=== PATIENT | male | born 1995 | race Caucasian/White ===

== ENCOUNTER 2021-01-29 00:38 | Emergency (ER) | payer OTHER ==
[2021-01-29 01:25] VITALS: BP 128/63; PULSE 84; TEMP 98.8; BMI 21.7
[2021-01-29] MEDS ORDERED: ACETAMINOPHEN 500 MG TABLET (FP) PO ONE (01:57)
[2021-01-29] MEDS ORDERED: ACETAMINOPHEN 325 MG TABLET (FP) ONE (02:07)
== END 2021-01-29 02:16 | disposition home or self-care (01) ==
LOC: JER 00:38
DX: M25.511 Pain in right shoulder (principal); F32.9 Major depressive disorder, single episode, unspecified
CPT/HCPCS: 99283-25

== ENCOUNTER 2022-03-30 00:52 | Emergency (ER) | payer OTHER ==
[2022-03-30 00:58] VITALS: BMI 26.4
[2022-03-30 07:17] VITALS: BP 111/70; PULSE 75; TEMP 97.6
== END 2022-03-30 11:16 | disposition home or self-care (01) ==
LOC: JER 00:52 → MERGE 00:52 → JER 11:16
DX: R45.851 Suicidal ideations (principal); R45.850 Homicidal ideations; R44.3 Hallucinations, unspecified
CPT/HCPCS: 82962; 99283-25

== ENCOUNTER 2022-03-31 21:07 | Emergency (ER) | payer OTHER ==
[2022-03-31 21:40] VITALS: BMI 24.4
[2022-03-31] MEDS ORDERED: LACTATED RINGERS SOLUTION 1000 ML INFUS.BAG IV ONE (22:45)
[2022-03-31 22:53] LABS: BASO % 0.5 % (0-2.0); EOS % 0.5 % (0-4.5); HEMATOCRIT 44.9 % (35.4-49); MCHC 33.4 g/dl (32.0-35.9); MEAN CELL VOLUME 86.8 fl (80-96); MEAN PLT VOLUME 7.8 fl (7.5-11.1); MONO % 10.8 % (3.8-10.2); NEUT % 68.2 % (42.8-82.8); PLATELET COUNT 219 10^3/uL (134-434); RBC 5.17 M/mm3 (4.00-5.60); RDW 13.9 % (11.9-15.9)
[2022-03-31 22:55] LABS: PH,URINE 6.5 (5.0-8.0); URINE APPEARANCE CLEAR; URINE BILIRUBIN NEGATIVE (NEGATIVE); URINE COLOR YELLOW; URINE GLUCOSE (UA) NEGATIVE (NEGATIVE); URINE KETONE NEGATIVE (NEGATIVE); URINE LEUK ESTERASE NEGATIVE (NEGATIVE); URINE NITRITE NEGATIVE (NEGATIVE); URINE PROTEIN NEGATIVE (NEGATIVE); URINE UROBILINOGEN 0.2 mg/dL (0.2-1.0)
[2022-03-31 23:02] LABS: CHLORIDE 102 mmol/L (98-107); SODIUM 134 mmol/L (136-145)
[2022-03-31 23:03] LABS: METHADONE, UR NEGATIVE (NEGATIVE); PHENCYCLIDINE,URINE NEGATIVE (NEGATIVE); URINE AMPHETAMINES NEGATIVE (NEGATIVE)
[2022-03-31 23:04] LABS: ALBUMIN 3.3 g/dl (3.4-5.0); ANION GAP 6 MMOL/L (8-16); BLOOD UREA NITROGEN 18.7 mg/dL (7-18); CALCIUM 8.8 mg/dL (8.5-10.1); CO2 27 mmol/L (21-32)
[2022-03-31 23:05] LABS: GLUCOSE,RANDOM 99 mg/dL (74-106)
[2022-03-31 23:07] LABS: SGPT/ALT 42 U/L (13-61)
[2022-03-31 23:08] LABS: COCAINE, UR POSITIVE (NEGATIVE); OPIATES, URI NEGATIVE (NEGATIVE); URINE BARBITURATES NEGATIVE (NEGATIVE); URINE BENZODIAZEPINES NEGATIVE (NEGATIVE)
[2022-03-31 23:08] LABS: SGOT/AST 18 U/L (15-37)
[2022-03-31 23:09] LABS: BILIRUBIN,TOTAL 0.2 mg/dL (0.2-1); TOT PROT 6.9 g/dl (6.4-8.2)
[2022-03-31 23:10] LABS: ALK PHOS 83 U/L (45-117)
[2022-04-01 14:45] VITALS: BP 117/76; PULSE 89; TEMP 98.1
== END 2022-04-01 14:51 | disposition home or self-care (01) ==
LOC: JER 21:07
DX: R45.851 Suicidal ideations (principal)
CPT/HCPCS: 36415; 80053; 80307; 81003; 82550; 82553; 84439; 84443; 85025; 87086; 93005; 93010; 99284-25

== ENCOUNTER 2022-04-09 21:13 | Emergency (ER) | payer OTHER ==
[2022-04-09 21:26] VITALS: BP 138/79; PULSE 108; TEMP 99.2; BMI 25.3
[2022-04-09] MEDS ORDERED: ACETAMINOPHEN 325 MG TABLET (FP) PO ONE (23:34)
[2022-04-09] MEDS ORDERED: ACETAMINOPHEN 325 MG TABLET (FP) ONE (23:43)
== END 2022-04-10 00:40 | disposition home or self-care (01) ==
LOC: JER 21:13
DX: R53.81 Other malaise (principal); Z59.00 Homelessness unspecified
CPT/HCPCS: 99283-25

== ENCOUNTER 2022-06-15 23:00 | Inpatient (IN) | payer OTHER ==
[2022-06-16] MEDS ORDERED: MAG HYDROX/AL HYDROX/SIMETH 30 ML UNIT-DOSE CUP PO ONE (00:13)
[2022-06-16] MEDS ORDERED: ACETAMINOPHEN 325 MG TABLET (FP) PO ONE (00:13)
[2022-06-16] MEDS ORDERED: FAMOTIDINE 20 MG TABLET PO ONE (00:13)
[2022-06-16] MEDS ORDERED: SODIUM CHLORIDE 0.9% 500 ML INFUS.BAG IV ONE ×2 (00:18→02:33)
[2022-06-16] MEDS ORDERED: FAMOTIDINE 20 MG/50 ML IVPB 20 MG/50 ML MG IVPB ONE ×2 (00:27→00:49)
[2022-06-16] MEDS ORDERED: ACETAMINOPHEN 1000 MG/100 ML BAG IVPB ONE (00:27)
[2022-06-16] MEDS ORDERED: ACETAMINOPHEN INJECTION 100 ML IVPB ONE (00:48)
[2022-06-16] MEDS ORDERED: MAG HYDROX/AL HYDROX/SIMETH 30 ML UNIT-DOSE CUP ONE (00:48)
[2022-06-16 00:57] LABS: BASO % 0.8 % (0-2.0); EOS % 1.6 % (0-4.5); HEMATOCRIT 41.1 % (35.4-49); LYMPH % 35.1 % (8-40); MCH 28.6 pg (25.7-33.7); MEAN CELL VOLUME 84.1 fl (80-96); MEAN PLT VOLUME 7.6 fl (7.5-11.1); MONO % 11.8 % (3.8-10.2); NEUT % 50.7 % (42.8-82.8); PLATELET COUNT 198 10^3/uL (134-434); RBC 4.88 M/mm3 (4.00-5.60); RDW 15.3 % (11.9-15.9); WHITE BLOOD COUNT 8.1 K/mm3 (4.0-10.0)
[2022-06-16 01:12] LABS: CHLORIDE 107 mmol/L (98-107); SODIUM 142 mmol/L (136-145)
[2022-06-16 01:14] LABS: CALCIUM 8.7 mg/dL (8.5-10.1)
[2022-06-16 01:15] LABS: ALBUMIN 3.6 g/dl (3.4-5.0); ANION GAP 7 MMOL/L (8-16); BLOOD UREA NITROGEN 25.6 mg/dL (7-18); CO2 28 mmol/L (21-32); GLUCOSE,RANDOM 109 mg/dL (74-106)
[2022-06-16 01:18] LABS: CREATININE 1.2 mg/dL (0.55-1.3); SGOT/AST 680 U/L (15-37); SGPT/ALT 95 U/L (13-61)
[2022-06-16 01:24] LABS: ALK PHOS 56 U/L (45-117); BILIRUBIN,TOTAL 0.4 mg/dL (0.2-1); TOT PROT 6.7 g/dl (6.4-8.2)
[2022-06-16 02:10] LABS: EPI CELLS 5 /uL (0-25.1); HYALINE CASTS 2 /uL (0-3.1); PH,URINE 5.5 (5.0-8.0); URINE APPEARANCE CLEAR; URINE BACTERIA 3 /uL (0-1359); URINE BILIRUBIN NEGATIVE (NEGATIVE); URINE COLOR YELLOW; URINE GLUCOSE (UA) NEGATIVE (NEGATIVE); URINE KETONE TRACE (NEGATIVE); URINE LEUK ESTERASE NEGATIVE (NEGATIVE); URINE NITRITE NEGATIVE (NEGATIVE); URINE PROTEIN 1+ (NEGATIVE); URINE RBC 6 /uL (0-23.9); URINE UROBILINOGEN 0.2 mg/dL (0.2-1.0); URINE WBC 13 /uL (0-25.8)
[2022-06-16] MEDS ORDERED: SODIUM CHLORIDE 250 ML IV STA (05:19)
[2022-06-16 12:06] LABS: HEMOGLOBIN 13.2 GM/dL (11.7-16.9); MCH 28.3 pg (25.7-33.7); MCHC 32.9 g/dl (32.0-35.9); MEAN CELL VOLUME 85.9 fl (80-96); MEAN PLT VOLUME 7.6 fl (7.5-11.1); PLATELET COUNT 181 10^3/uL (134-434); RBC 4.66 M/mm3 (4.00-5.60); RDW 15.6 % (11.9-15.9); WHITE BLOOD COUNT 7.2 K/mm3 (4.0-10.0)
[2022-06-16 12:36] LABS: CALCIUM 8.3 mg/dL (8.5-10.1)
[2022-06-16 12:37] LABS: BLOOD UREA NITROGEN 18.6 mg/dL (7-18); MAGNESIUM 2.4 mg/dL (1.8-2.4)
[2022-06-16 12:39] LABS: BILIRUBIN,DIRECT 0.1 mg/dL (0.0-0.2)
[2022-06-16 12:40] LABS: CREATININE 0.9 mg/dL (0.55-1.3); PHOSPHOROUS 3.5 mg/dL (2.5-4.9)
[2022-06-16 12:41] LABS: BILIRUBIN,TOTAL 0.6 mg/dL (0.2-1); TOT PROT 5.9 g/dl (6.4-8.2)
[2022-06-16] MEDS ORDERED: ENOXAPARIN NA (PORCINE) 40 MG/0.4 ML DISP.SYRIN SQ ONE (14:41)
[2022-06-16] MEDS: ENOXAPARIN NA (PORCINE) 40 MG/0.4 ML DISP.SYRIN SQ SCH (14:52)
[2022-06-16] MEDS: SODIUM CHLORIDE 1,000 ML IV SCH ×2 (14:57→20:26)
[2022-06-16 21:12] VITALS: BMI 29.0
[2022-06-17] MEDS: SODIUM CHLORIDE 1,000 ML IV SCH ×3 (05:16→20:29)
[2022-06-17 12:08] LABS: CALCIUM 8.6 mg/dL (8.5-10.1)
[2022-06-17] MEDS: ENOXAPARIN NA (PORCINE) 40 MG/0.4 ML DISP.SYRIN SQ SCH (13:25)
[2022-06-17] MEDS ORDERED: SODIUM CHLORIDE 1,000 ML IV SCH (14:00)
[2022-06-17] MEDS ORDERED: ACETAMINOPHEN INJECTION 100 ML IVPB ONE (14:09)
[2022-06-17] MEDS: ACETAMINOPHEN 1000 MG/100 ML BAG IVPB PRN ×2 (14:30→20:29)
[2022-06-18] MEDS: SODIUM CHLORIDE 1,000 ML IV SCH ×2 (06:47→13:58)
[2022-06-18] MEDS: ENOXAPARIN NA (PORCINE) 40 MG/0.4 ML DISP.SYRIN SQ SCH (09:23)
[2022-06-18 11:51] LABS: BASO % 0.9 % (0-2.0); EOS % 2.9 % (0-4.5); HEMATOCRIT 42.6 % (35.4-49); HEMOGLOBIN 14.4 GM/dL (11.7-16.9); LYMPH % 20.8 % (8-40); MCH 28.8 pg (25.7-33.7); MCHC 33.8 g/dl (32.0-35.9); MEAN CELL VOLUME 85.2 fl (80-96); NEUT % 55.4 % (42.8-82.8); PLATELET COUNT 186 10^3/uL (134-434); RDW 15.2 % (11.9-15.9)
[2022-06-18 12:11] LABS: CALCIUM 8.5 mg/dL (8.5-10.1)
[2022-06-18 12:12] LABS: ALBUMIN 3.3 g/dl (3.4-5.0); BLOOD UREA NITROGEN 11.5 mg/dL (7-18)
[2022-06-18 12:15] LABS: CREATININE 0.9 mg/dL (0.55-1.3)
[2022-06-18 12:16] LABS: BILIRUBIN,TOTAL 0.3 mg/dL (0.2-1)
[2022-06-18] MEDS ORDERED: SODIUM CHLORIDE 1,000 ML IV SCH (14:22)
[2022-06-19 06:52] LABS: PH,URINE 6.5 (5.0-8.0); URINE APPEARANCE CLEAR; URINE BILIRUBIN NEGATIVE (NEGATIVE); URINE COLOR YELLOW; URINE GLUCOSE (UA) NEGATIVE (NEGATIVE); URINE KETONE NEGATIVE (NEGATIVE); URINE LEUK ESTERASE NEGATIVE (NEGATIVE); URINE NITRITE NEGATIVE (NEGATIVE); URINE PROTEIN NEGATIVE (NEGATIVE); URINE UROBILINOGEN 0.2 mg/dL (0.2-1.0)
[2022-06-19] MEDS: ENOXAPARIN NA (PORCINE) 40 MG/0.4 ML DISP.SYRIN SQ SCH (10:03)
[2022-06-19 15:27] LABS: BASO % 0.8 % (0-2.0); EOS % 6.5 % (0-4.5); HEMATOCRIT 44.4 % (35.4-49); LYMPH % 41.3 % (8-40); MCH 28.7 pg (25.7-33.7); MCHC 33.7 g/dl (32.0-35.9); MEAN CELL VOLUME 85.3 fl (80-96); MEAN PLT VOLUME 7.7 fl (7.5-11.1); MONO % 16.2 % (3.8-10.2); NEUT % 35.2 % (42.8-82.8); PLATELET COUNT 190 10^3/uL (134-434); RBC 5.21 M/mm3 (4.00-5.60); RDW 14.4 % (11.9-15.9); WHITE BLOOD COUNT 5.5 K/mm3 (4.0-10.0)
[2022-06-19 15:52] LABS: CALCIUM 8.5 mg/dL (8.5-10.1)
[2022-06-19 15:53] LABS: BLOOD UREA NITROGEN 13.8 mg/dL (7-18)
[2022-06-19 15:56] LABS: CREATININE 1.1 mg/dL (0.55-1.3)
[2022-06-20] MEDS: ENOXAPARIN NA (PORCINE) 40 MG/0.4 ML DISP.SYRIN SQ SCH (09:32)
[2022-06-20 13:25] LABS: CALCIUM 9.1 mg/dL (8.5-10.1)
[2022-06-20 13:26] LABS: BLOOD UREA NITROGEN 14.9 mg/dL (7-18)
[2022-06-20 14:58] VITALS: BP 121/69; PULSE 70; TEMP 98.5
== END 2022-06-20 17:02 | disposition home or self-care (01) | DRG 351 ==
LOC: JER 23:00 → JERBED 06-16 04:17 → J5S 06-16 20:33 → J8W 06-19 13:23
PROVIDERS: ADMIT Internal Medicine; ATTEND Internal Medicine
DX: M62.82 Rhabdomyolysis (principal); F20.9 Schizophrenia, unspecified; F11.10 Opioid abuse, uncomplicated; F12.10 Cannabis abuse, uncomplicated; F31.9 Bipolar disorder, unspecified; Z59.00 Homelessness unspecified; R74.01 Elevation of levels of liver transaminase levels; F17.210 Nicotine dependence, cigarettes, uncomplicated; J45.909 Unspecified asthma, uncomplicated; U07.1 COVID-19
CPT/HCPCS: 0241U-QW; 36415; 71046-TC-FY; 76705-TC; 80048; 80053; 80076; 81003; 82550; 82553; 83605; 83735; 84100; 85025; 85027; 85379; 86140; 87040; 87086; 93005; 93010; 99285-25; C9803-CS; U0003; U0005